=== PATIENT | female | born 1930 | race Caucasian/White ===

== ENCOUNTER 2021-09-26 16:39 | Inpatient (IN) | payer OTHER, SELFPAY ==
[~2021-09-26] VITALS: Ht 157.5 cm; Wt 49.9 kg
--- NOTE | 2021-09-26 16:44 | NUR ---
BIBA TO ER BED 9
[2021-09-26] MEDS ORDERED: NACL 0.9% 1,000 ML IV ONE (16:55)
--- NOTE | 2021-09-26 17:08 | NUR ---
RT BEDSIDE COLLECTING ABG
--- NOTE | 2021-09-26 17:10 | NUR ---
20 G IV ESTABLISHED IN R HAND. BLOOD WORK COLLECTED FROM IV
--- NOTE | 2021-09-26 17:11 | NUR ---
# 16 FR Urinary catheter inserted utilizing sterile technique. Immediate return of 20 ml ASAF urine noted. Urine sample collected and sent to lab. Pt tolerated procedure WELL.
[2021-09-26 17:19] VITALS: BP 132/69
--- NOTE | 2021-09-26 17:27 | NUR ---
89Y FEMALE BIBA FROM [facility] DUE TO SOB AND SATING DOWN TO 87% ON RA. PT IS CURRENTLY COVID POSITIVE AT THIS TIME. UPON ARRIVAL PATIENT IS CURRENTLY SATING 87% ON RA AND PLACED ONTO 4L VIA NC. PT CURRENTLY SATING AT 93%. BREATH SOUNDS SLIGHTLY DIMINISHED AT THIS TIME THROUGHOUT. PATIENT IS CURRENTLY WARM TO TOUCH. PT A&OX1 TO NAME ONLY. SKIN DRY AND INTACT, BUT SOME BRUISING NOTED ON PATIENT UE. PMH: DEMENTIA, DHYSAGIA, UTI NKA
--- NOTE | 2021-09-26 17:36 | NUR ---
TASIA SMITH, INFLUENZA SWAB COLLECTED AND WALKED OVER TO LAB
--- NOTE | 2021-09-26 17:37 | NUR ---
BLOODWORK COLLECTED AND WALKED OVER TO LAB
[2021-09-26 17:47] LABS: HEMATOCRIT 38.2 % (36-48); HEMOGLOBIN 12.7 g/dL (12.0-16.0); MEAN CORPUSCULAR HEMOGLOBIN 30 pg (27-31); MEAN CORPUSCULAR HGB CONC 33 g/dL (33-37); MEAN CORPUSCULAR VOLUME 91.1 fL (80-94); PLATELET COUNT (AUTO) 241 K/uL (140-450); RED BLOOD CELL COUNT(AUTO) 4.19 MIL/uL (4.20-5.40); RED CELL DISTRIBUTION WIDTH 14.5 % (11.6-13.7); WHITE BLOOD COUNT (AUTO) 15.8 K/uL (4.8-10.8)
[2021-09-26 18:08] LABS: ALBUMIN 2.2 g/dL (3.4-5.0); ANION GAP 17.4 (8-16); ASPARTATE AMINOTRANSFERASE 58 U/L (15-37); CARBON DIOXIDE 22.6 mmol/L (21-32); CHLORIDE 109 mmol/L (98-107); CREATININE 1.3 mg/dL (0.6-1.3); GLUCOSE 143 mg/dL (74-106); LIPASE 273 U/L (73-393); SODIUM SERUM 145 mmol/L (136-145); TOTAL BILIRUBIN 2.4 mg/dL (0.0-1.0); UREA NITROGEN, BLOOD 52 mg/dL (7-18)
--- NOTE | 2021-09-26 18:10 | NUR ---
XRAY AT PATIENT BEDSIDE
[2021-09-26 18:17] LABS: LYMPHOCYTES % (MANUAL) 3 % (20-46); MONOCYTES % (MANUAL) 2 % (5-12)
[2021-09-26] MEDS ORDERED: AZITHROMYCIN 500 MG in DEXTROSE 5% 250 ML IV ONE (19:10)
[2021-09-26] MEDS ORDERED: cefTRIAXone 1,000 MG in LIDOCAINE MPF 1% 2.1 ML IM ONE (19:10)
[2021-09-26] MEDS ORDERED: DEXAMETHASONE 10 MG/ML VIAL IVP ONE (19:10)
--- NOTE | 2021-09-26 19:15 | NUR ---
RECIEVED SHIFT REPORT FROM ANH MARQUEZ TO ASSUME CARE OF THE PT.
--- NOTE | 2021-09-26 19:20 | NUR ---
RN TO PT ROOM. PT LYING IN BED WITH EYES CLOSED, APPEARS TO BE SLEEPING. EQUAL RISE AND FALL OF CHEST. NO ACUTE DISTRESS AT THIS TIME. ALL VS ARE STABLE AT TIME OF ASSESSMENT. WILL CONTINUE TO MONITOR PT.
--- NOTE | 2021-09-26 19:24 | NUR ---
Pt report given to ANH ABURTO. Transfer of care at this time.
--- NOTE | 2021-09-26 19:53 | NUR ---
CHANNEL SALES MANAGER TEXTED AT 1948 FOR ADMISSION
[2021-09-26] MEDS ORDERED: LIDOCAINE MPF 1% 5 ML ONE ×2 (20:11→20:15)
[2021-09-26] MEDS ORDERED: cefTRIAXone 1,000 MG VIAL ONE (20:11)
[2021-09-26] MEDS ORDERED: AZITHROMYCIN 500 MG INJ VIAL IV ONE ×2 (20:13→20:23)
[2021-09-26] MEDS ORDERED: AZITHROMYCIN 500 MG in DEXTROSE 5% 250 ML IV SCH (20:15)
--- NOTE | 2021-09-26 21:00 | NUR ---
PT LYING IN BED, APPEARS TO BE ASLEEP. NO ACUTE DISTRESS AT THIS TIME. RN PROVIDED WARM BLANKETS FOR COMFORT. WILL CONTINUE TO MONITOR PT.
[2021-09-26 23:11] LABS: APPEARANCE,URINE CLOUDY (CLEAR); BILIRUBIN,URINE 2+ (NEGATIVE); BLOOD, URINE NEGATIVE (NEGATIVE); COLOR,URINE BROWN (YELLOW); LEUKOCYTE ESTERASE ,URINE 2+ (NEGATIVE); NITRITE, URINE POSITIVE (NEGATIVE); PH,URINE 8.5 (5.0-9.0); UGLUCOSE NEGATIVE (NEGATIVE)
--- NOTE | 2021-09-26 23:43 | NUR ---
PT LYING IN BED WITH EYES CLOSED, APPEARS TO BE ASLEEP. EQUAL RISE AND FALL OF THE CHEST. ALL VS ARE STABLE. NO ACUTE DISTRESS AT THIS TIME WILL CONTINUE TO MONITOR PT.
[2021-09-26 23:59] LABS: RBC,URINE 0-5 /HPF (0-5)
[2021-09-27] LABS: WBC,URINE TOO MANY TO COUNT /HPF (0-5)
[2021-09-27 00:01] LABS: FINE GRANULAR CASTS,URINE 0-5 /LPF (None Seen)
[2021-09-27 00:02] LABS: TRIPLE PHOSPHATE CRYSTAL,UR 0-2 /HPF (None Seen)
--- NOTE | 2021-09-27 03:59 | NUR ---
RN PROVIDED PT WITH WARM BLANKETS FOR COMFORT, REPOSITIONED PT PER REQUEST. WILL CONTINUE TO MONITOR PT.
--- NOTE | 2021-09-27 06:13 | NUR ---
RN AND EMT TO ROOM TO PROVIDE INCONTINENCE CARE. PT URINATED IN ADULT BRIEF. PT REPOSITIONED FOR COMFORT, WARM BLANKETS PROVIDED FOR COMFORT. WILL CONTINUE TO MONITOR PT.
--- NOTE | 2021-09-27 07:10 | NUR ---
REPORT GIVEN TO ANH MARQUEZ TO ASSUME CARE OF PT.
--- NOTE | 2021-09-27 07:11 | NUR ---
REPORT RECEIVED FROM ANH ABURTO FOR TRANSFER OF CARE
--- NOTE | 2021-09-27 07:46 | NUR ---
PT ADMITTED 09/26/21 AT 2256 UNDER MD RIGGS, PT TELE HOLD IN ED BED 11
--- NOTE | 2021-09-27 08:00 | NUR ---
PT PULLED UP IN BED AND REPOSITIONED FOR COMFORT. NC ADJUSTED AND PLACED BACK ON PATIENT
--- NOTE | 2021-09-27 08:09 | NUR ---
PT PROVIDED WITH BREAKFAST TRAY. ATTEMPTED TO FEED PATIENT, BUT PATIENT REFUSING AT THIS TIME
[2021-09-27] MEDS ORDERED: cefTRIAXone 1,000 MG VIAL ONE (08:57)
--- NOTE | 2021-09-27 09:35 | NUR ---
CALLED AND SPOKE WITH PATIENT DAUGHTER KARLA. PROVIDED WITH UPDATE ON PATIENT STATUS. INFORMED [facility] CALL [facility] POSSIBLE TO PROVIDE WITH UPDATE
[2021-09-27] MEDS ORDERED: AZITHROMYCIN 500 MG INJ VIAL IV ONE (10:51)
--- NOTE | 2021-09-27 11:08 | NUR ---
Patient appears to be resting comfortably in bed. Vital Signs within normal limits. Respirations even and unlabored.
[2021-09-27] MEDS: AZITHROMYCIN 500 MG in DEXTROSE 5% 250 ML IV SCH (11:13)
[2021-09-27] MEDS ORDERED: ONDANSETRON 4 MG/2 ML VIAL IM/IVP PRN (11:40)
[2021-09-27] MEDS ORDERED: ALBUTEROL HFA MDI 90 MCG/ACTUATION 8 GM INH PRN (11:40)
[2021-09-27] MEDS ORDERED: HYDROcodone/APAP 5/325 MG 1 TAB TAB PO PRN (11:40)
[2021-09-27] MEDS ORDERED: ACETAMINOPHEN 325 MG TAB PO PRN (11:40)
[2021-09-27] MEDS ORDERED: MAG SULF 2000 MG/WATER PREMIX 50 ML IV PRN (11:40)
[2021-09-27] MEDS ORDERED: LORazepam 2 MG/ML VIAL IM/IVP PRN (11:40)
[2021-09-27] MEDS ORDERED: MORPHINE SULFATE 2 MG/ML SYR IVP PRN (11:40)
[2021-09-27] MEDS ORDERED: DOCUSATE SODIUM 100 MG GELCAP PO PRN (11:40)
[2021-09-27] MEDS ORDERED: POTASSIUM CHLORIDE 10 MEQ TABER PO PRN (11:40)
[2021-09-27] MEDS ORDERED: ZOLPIDEM 5 MG TAB PO PRN (11:40)
[2021-09-27] MEDS: NACL 0.9% 1,000 ML IV SCH (12:23)
--- NOTE | 2021-09-27 13:22 | NUR ---
PROVIDED PATIENT WITH LUNCH TRAY AT THIS TIME AND ATTEMPTED TO FEED PATIENT. PATIENT REFUSING TO EAT AT THIS TIME
[2021-09-27 13:44] LABS: BASOPHILS % (AUTO) 0.1 % (0.0-2.0); HEMATOCRIT 35.9 % (36-48); HEMOGLOBIN 11.8 g/dL (12.0-16.0); LYMPHOCYTES # (AUTO) 0.5 K/uL (2.5-16.5); LYMPHOCYTES % (AUTO) 4.3 % (20.5-51.1); MEAN CORPUSCULAR HEMOGLOBIN 30 pg (27-31); MEAN CORPUSCULAR HGB CONC 33 g/dL (33-37); MEAN CORPUSCULAR VOLUME 92.2 fL (80-94); MONOCYTES # (AUTO) 0.3 K/uL (0.8-1.0); MONOCYTES % (AUTO) 2.8 % (1.7-9.3); NEUTROPHILS # (AUTO) 10.8 K/uL (1.8-7.7); NEUTROPHILS % (AUTO) 92.8 % (42.2-75.2); PLATELET COUNT (AUTO) 224 K/uL (140-450); RED CELL DISTRIBUTION WIDTH 14.6 % (11.6-13.7); WHITE BLOOD COUNT (AUTO) 11.7 K/uL (4.8-10.8)
[2021-09-27 13:58] LABS: PROTHROMBIN TIME 10.2 secs (10.8-13.4)
[2021-09-27 15:40] LABS: ASPARTATE AMINOTRANSFERASE 32 U/L (15-37); CARBON DIOXIDE 23.6 mmol/L (21-32); CHOL/HDL RATIO 5.4 (1-4.5); GLUCOSE 225 mg/dL (74-106); HDL CHOLESTEROL 20 mg/dL (40-60); LDL (CALC) 65 mg/dL (60-100); MAGNESIUM 2.8 mg/dL (1.8-2.4); PHOSPHORUS 3.8 mg/dL (2.5-4.9); TOTAL BILIRUBIN 0.8 mg/dL (0.0-1.0); TRIGLYCERIDES 110 mg/dL (30-150); UREA NITROGEN, BLOOD 48 mg/dL (7-18)
[2021-09-27 16:09] LABS: ANION GAP 17.1 (8-16); CHLORIDE 112 mmol/L (98-107); POTASSIUM 3.7 mmol/L (3.5-5.1); SODIUM SERUM 149 mmol/L (136-145); THYROID STIMULATING HORMONE 0.01 uIU/mL (0.34-3.74)
--- NOTE | 2021-09-27 16:09 | NUR ---
Patient appears to be resting comfortably in bed. Vital Signs within normal limits. Respirations even and unlabored.
--- NOTE | 2021-09-27 17:19 | NUR ---
PT HAD BM BEDSIDE. PT PROVIDED WITH [facility] AND PROVIDED WITH FRESH DIAPER AND LINEN. PT POSITIONED FOR COMFORT
--- NOTE | 2021-09-27 17:55 | NUR ---
Patient appears to be resting comfortably in bed. Vital Signs within normal limits. Respirations even and unlabored.
--- NOTE | 2021-09-27 19:28 | NUR ---
Pt report given to ANH LOZADA. Transfer of care at this time.
--- NOTE | 2021-09-27 19:30 | NUR ---
RESTING IN BEDF WITH EYES CLOSED, RESPIRATIONS REGULAR AND UNLABORED
--- NOTE | 2021-09-27 22:00 | NUR ---
AWAKE, ASSISTED WITH REPOSITIONING
[2021-09-27] MEDS: ZINC SULF 220 MG CAP PO SCH (22:01)
[2021-09-28 07:17] LABS: BASOPHILS % (AUTO) 0.1 % (0.0-2.0); HEMATOCRIT 35.8 % (36-48); HEMOGLOBIN 11.6 g/dL (12.0-16.0); LYMPHOCYTES # (AUTO) 0.5 K/uL (2.5-16.5); LYMPHOCYTES % (AUTO) 4.1 % (20.5-51.1); MEAN CORPUSCULAR HEMOGLOBIN 30 pg (27-31); MEAN CORPUSCULAR HGB CONC 33 g/dL (33-37); MEAN CORPUSCULAR VOLUME 93.1 fL (80-94); MONOCYTES # (AUTO) 0.5 K/uL (0.8-1.0); MONOCYTES % (AUTO) 4.1 % (1.7-9.3); NEUTROPHILS # (AUTO) 11.8 K/uL (1.8-7.7); NEUTROPHILS % (AUTO) 91.7 % (42.2-75.2); PLATELET COUNT (AUTO) 222 K/uL (140-450); RED BLOOD CELL COUNT(AUTO) 3.84 MIL/uL (4.20-5.40); RED CELL DISTRIBUTION WIDTH 14.9 % (11.6-13.7); WHITE BLOOD COUNT (AUTO) 12.9 K/uL (4.8-10.8)
--- NOTE | 2021-09-28 07:30 | NUR ---
REPORT RECEVIED FROM [place] FOR CONTINUITY OF CARE. PT AWAKE, A&OX2. ON NASAL CANNULA 3LPM. IV SITE LT HAND 20G AND LT FOREARM 24, INTACT, PATENT, GOOD BLOOD RETURN. SKIN INTACT, WARM AND DRY. WILL CONTINUE TO MONITOR.
[2021-09-28 07:39] LABS: ALBUMIN 1.9 g/dL (3.4-5.0); ANION GAP 11.6 (8-16); ASPARTATE AMINOTRANSFERASE 28 U/L (15-37); CHLORIDE 116 mmol/L (98-107); CREATININE 0.8 mg/dL (0.6-1.3); GLUCOSE 125 mg/dL (74-106); LACTATE DEHYDROGENASE 197 U/L (81-234); MAGNESIUM 2.9 mg/dL (1.8-2.4); PHOSPHORUS 3.1 mg/dL (2.5-4.9); POTASSIUM 3.6 mmol/L (3.5-5.1); SODIUM SERUM 152 mmol/L (136-145); TOTAL BILIRUBIN 0.7 mg/dL (0.0-1.0); UREA NITROGEN, BLOOD 45 mg/dL (7-18)
--- NOTE | 2021-09-28 08:00 | NUR ---
Note undone in EDM - 09/28/21 at 1613 by [email or web address] REPORT RECEVIED FROM [place] FOR CONTINUITY OF CARE. PT AWAKE, A&OX2. ON NASAL CANNULA 3LPM. IV SITE LT HAND 20G AND LT FOREARM 24, INTACT, PATENT, GOOD BLOOD RETURN. SKIN INTACT, WARM AND DRY. WILL CONTINUE TO MONITOR.
[2021-09-28] MEDS: ZINC SULF 220 MG CAP PO SCH ×2 (09:40→21:00)
[2021-09-28] MEDS: VITAMIN D 400 IU TAB PO SCH (09:41)
[2021-09-28] MEDS: ASCORBIC ACID 500 MG TAB PO SCH (09:41)
[2021-09-28] MEDS ORDERED: CRUSHER, PILL MC ONE ×2 (09:52→16:18)
--- NOTE | 2021-09-28 10:18 | NUR ---
PATIENT HAS BEEN SCREENED AND CATEGORIZED MODERATE NUTRITION RISK. PATIENT WILL BE SEEN WITHIN 3-5 DAYS OF ADMISSION. 09/29/2021-10/01/[address]
[2021-09-28] MEDS ORDERED: remdesivir COMMUNICATION ORDER 1 EA MISC MC PRN (10:50)
[2021-09-28] MEDS ORDERED: remdesivir CLINICAL MONITORING 1 EA MISC MC PRN (11:45)
[2021-09-28] MEDS: NACL 0.9% 1,000 ML IV SCH (11:54)
[2021-09-28] MEDS: AZITHROMYCIN 500 MG in DEXTROSE 5% 250 ML IV SCH (11:55)
[2021-09-28] MEDS ORDERED: REMDESIVIR. 200 MG in NACL 0.9% 100 ML IV SCH (13:00)
[2021-09-28] MEDS: NACL 0.45% 1,000 ML IV SCH (14:07)
[2021-09-28] MEDS ORDERED: COMMUNICATION ORDER MC PRN (14:45)
[2021-09-28] MEDS ORDERED: MISC ORAL TAB PO SCH (16:00)
[2021-09-28] MEDS: BARICITINIB 2 MG PO SCH (16:17)
--- NOTE | 2021-09-28 16:39 | NUR ---
PT MOVED TO 10A.
--- NOTE | 2021-09-28 17:23 | NUR ---
PT TAKEN FOR CT ANGIO VIA RYEN
--- NOTE | 2021-09-28 17:50 | NUR ---
PT RETURNED FROM CT
--- NOTE | 2021-09-28 19:27 | NUR ---
Pt report given to IDANIA KAMARA. Transfer of care at this time.
--- NOTE | 2021-09-28 19:38 | NUR ---
RECEIVED PATIENT SOAKED WITH ALL THE URINE AND FECES, CLEANED UP AND KEEP IT DRY.
--- NOTE | 2021-09-28 21:00 | NUR ---
ALL DUE MEDS WAS GIVEN AND TOLERATED WELL.
--- NOTE | 2021-09-29 00:05 | NUR ---
Patient appears to be resting comfortably in bed. Vital Signs within normal limits. Respirations even and unlabored.
--- NOTE | 2021-09-29 07:30 | NUR ---
RECEIVED PT IN [facility] [place] +. BREATHING UNLABORED. 2L NC SATURATION 96%. VSS. IV INTACT AND PATENT INFUSING FLUIDS PER ORDER. NAD. SAFETY MAINTAINED.
[2021-09-29] MEDS: NACL 0.45% 1,000 ML IV SCH (08:50)
[2021-09-29] MEDS ORDERED: cefTRIAXone 1,000 MG VIAL ONE (09:29)
[2021-09-29] MEDS ORDERED: AZITHROMYCIN 500 MG INJ VIAL IV ONE (09:29)
[2021-09-29] MEDS: VITAMIN D 400 IU TAB PO SCH (09:56)
[2021-09-29] MEDS: ZINC SULF 220 MG CAP PO SCH (09:56)
[2021-09-29] MEDS: ASCORBIC ACID 500 MG TAB PO SCH (09:56)
[2021-09-29] MEDS: AZITHROMYCIN 500 MG in DEXTROSE 5% 250 ML IV SCH (09:56)
[2021-09-29 10:39] LABS: ALBUMIN 1.8 g/dL (3.4-5.0); ANION GAP 13.9 (8-16); ASPARTATE AMINOTRANSFERASE 31 U/L (15-37); CARBON DIOXIDE 22.9 mmol/L (21-32); CHLORIDE 121 mmol/L (98-107); CREATININE 0.7 mg/dL (0.6-1.3); GLUCOSE 119 mg/dL (74-106); LACTATE DEHYDROGENASE 186 U/L (81-234); MAGNESIUM 2.5 mg/dL (1.8-2.4); PHOSPHORUS 2.9 mg/dL (2.5-4.9); POTASSIUM 3.8 mmol/L (3.5-5.1); SODIUM SERUM 154 mmol/L (136-145); TOTAL BILIRUBIN 0.5 mg/dL (0.0-1.0); UREA NITROGEN, BLOOD 39 mg/dL (7-18)
[2021-09-29 10:55] LABS: BASOPHILS % (AUTO) 0.3 % (0.0-2.0); EOSINOPHILS % (AUTO) 0.1 % (0.0-4.0); HEMATOCRIT 32.3 % (36-48); HEMOGLOBIN 10.8 g/dL (12.0-16.0); LYMPHOCYTES # (AUTO) 0.5 K/uL (2.5-16.5); LYMPHOCYTES % (AUTO) 7.2 % (20.5-51.1); MEAN CORPUSCULAR HEMOGLOBIN 31 pg (27-31); MEAN CORPUSCULAR HGB CONC 33 g/dL (33-37); MEAN CORPUSCULAR VOLUME 91.8 fL (80-94); MONOCYTES # (AUTO) 0.6 K/uL (0.8-1.0); MONOCYTES % (AUTO) 9.4 % (1.7-9.3); NEUTROPHILS # (AUTO) 5.5 K/uL (1.8-7.7); PLATELET COUNT (AUTO) 259 K/uL (140-450); RED BLOOD CELL COUNT(AUTO) 3.52 MIL/uL (4.20-5.40); RED CELL DISTRIBUTION WIDTH 14.9 % (11.6-13.7); WHITE BLOOD COUNT (AUTO) 6.7 K/uL (4.8-10.8)
--- NOTE | 2021-09-29 10:55 | NUR ---
PT RESTING IN RNEY NOTED INCONTINENT OF STOOL CLEANED AND REPOSITIONED. NAD. SAFETY MAINTAINED.
[2021-09-29] MEDS ORDERED: AZIT250T3 PO (11:16)
[2021-09-29] MEDS ORDERED: IV Rocephin IV (11:16)
[2021-09-29] MEDS ORDERED: DEC1 PO (11:16)
[2021-09-29] MEDS ORDERED: ASPI-1205 PO (11:17)
[2021-09-29 12:07] LABS: T4 (THYROXINE) 7.1 ug/dL (4.5-12.0)
[2021-09-29] MEDS ORDERED: REMDESIVIR. 100 MG in NACL 0.9% 100 ML IV SCH (13:00)
[2021-09-29] MEDS: BARICITINIB 2 MG PO SCH (16:00)
--- NOTE | 2021-09-29 18:18 | NUR ---
REPORT GIVEN TO FRANNY KAMARA [place] [facility] [place] CARE
[2021-09-29 19:26] VITALS: BP 134/70
--- NOTE | 2021-09-29 19:27 | NUR ---
[facility] EMT AT BEDSIDE FOR TX. PT STABLE ON DC BACK TO [facility].
== END 2021-09-29 19:27 | DRG 871 ==
LOC: MED 16:39 → MTU 20:13
PROC: XW033E5 Introduction of Remdesivir Anti-infective into Peripheral Vein, Percutaneous Approach, New Technology Group 5 (ICD-10-PCS; principal; 2021-09-28)
DX: A41.9 Sepsis, unspecified organism (principal); U07.1 COVID-19; J12.82 Pneumonia due to coronavirus disease 2019; J96.02 Acute respiratory failure with hypercapnia; E43 Unspecified severe protein-calorie malnutrition; J96.01 Acute respiratory failure with hypoxia; N39.0 Urinary tract infection, site not specified; E87.2 Acidosis; F03.90 Unspecified dementia, unspecified severity, without behavioral disturbance, psychotic disturbance, mood disturbance, and anxiety; E83.41 Hypermagnesemia; R74.01 Elevation of levels of liver transaminase levels; E86.0 Dehydration; Z87.440 Personal history of urinary (tract) infections; Z68.20 Body mass index [BMI] 20.0-20.9, adult
CPT/HCPCS: 36415; 71045; 71275; 80053; 81001; 82140; 83036; 83605; 83615; 83690; 83735; 83880; 84100; 84134; 84436; 84443; 84484; 85025; 85379; 85610; 85651; 85730; 86140; 87040; 87086; 87804; 93005; 96365; 96372; 96375; 99291; J0456; J0696; J1100; J1644; J2001; J7060; Q0092; Q9967